=== PATIENT | male | born 1965 | race Hispanic/Latino ===

== ENCOUNTER 2018-10-02 12:02 | Emergency (ER) | payer MEDICAID ==
[2018-10-02 12:17] VITALS: BMI 22.0
[2018-10-02 12:22] VITALS: RESP 18; O2SAT 96
--- NOTE | 2018-10-02 12:28 | ED PDOC ---
Arrival/HPI - General Time Seen by Provider: 10/02/18 12:07 Historian: Patient, EMS - History of Present Illness Narrative History of Present Illness (Text): 10/02/18 12:22 Patient is a 53 y/o M, with no significant past medical history, presents to the ED via EMS for medical evaluation s/p alcohol intoxication today. As per EMS, patient was at a fast food restaurant when he became agitated and was subsequently brought to the ED for evaluation. Patient admits to drinking alcohol today and was able to ambulate to the stretcher without any difficulty. Patient denies any medical complaints. ROS limited secondary to patient's clinical presentation of alcohol intoxication. Time/Duration: Prior to Arrival Symptom Onset: Gradual Symptom Course: Unchanged Activities at Onset: Light Context: Other (Fast Food restaurant) Past Medical History - Provider Review Nursing Documentation Reviewed: Yes Family/Social History - Physician Review Nursing Documentation Reviewed: Yes Family/Social History: No Known Family HX Allergies/Home Meds Allergies/Adverse Reactions: Allergies Unobtainable Allergy (Verified 10/02/18 12:12) Review of Systems - Review of Systems Systems not reviewed;Unavailable: Intoxicated Respiratory: absent: SOB Cardiovascular: absent: Chest Pain Physical Exam Vital Signs Reviewed: Yes Vital Signs Temp Pulse Resp BP Pulse Ox 10/02/18 12:22 98.0 F 88 18 142/68 96 Temperature: Afebrile Blood Pressure: Normal Pulse: Regular Respiratory Rate: Normal Appearance: Positive for: Comfortable, Other (Alcohol smell on breath) Pain Distress: None Mental Status: Positive for: Alert and Oriented X 3 Finger Stick Blood Glucose: 112 - Systems Exam Head: Present: Atraumatic, Normocephalic Pupils: Present: PERRL Extroacular Muscles: Present: EOMI Conjunctiva: Present: Normal Respiratory/Chest: Present: Clear to Auscultation, Good Air Exchange. No: Respiratory Distress, Accessory Muscle Use Cardiovascular: Present: Regular Rate and Rhythm, Normal S1, S2. No: Murmurs Abdomen: No: Tenderness, Distention, Peritoneal Signs Back: Present: Normal Inspection Upper Extremity: Present: Normal Inspection. No: Cyanosis, Edema Lower Extremity: Present: Normal Inspection. No: Edema Neurological: Present: GCS=15, CN II-XII Intact, Speech Normal (alcohol smell on breath) Skin: Present: Warm, Dry, Normal Color. No: Rashes Psychiatric: Present: Alert, Intoxicated Medical Decision Making ED Course and Treatment: 10/02/18 12:28 Impression: 53 year old male presents to the ED for medical evaluation s/p alcohol intoxication. Differential Diagnosis included but are not limited to: Alcohol intoxication Plan: -- Monitor until sobriety -- Reassess and disposition Prior Visits: Notes and results from previous visits were reviewed. Progress Notes: 10/02/18 12:28 On exam, patient appears clinically intoxicated with alcohol smell on breath. Patient admits to drinking alcohol today. Patient was able to ambulate without any difficulty to the stretcher. Patient is resting comfortably in bed in no acute distress. Finger stick at bedside shows 112 BS. Patient will be monitored until sobriety. 10/02/18 21:04 Patient has been monitored for 9 hours. He is [facility]. He is ambulating around the Emergency department without issue. He was made aware of detox program at [facility] He was given list of shelters. - Scribe Statement The provider has reviewed the documentation as recorded by the Scribe Victor Manuel Aguilar. All medical record entries made by the Scribe were at my direction and personally dictated by me. I have reviewed the chart and agree that the record accurately reflects my personal performance of the history, physical exam, medical decision making, and the department course for this patient. I have also personally directed, reviewed, and agree with the discharge instructions and disposition. Disposition/Present on Arrival - Present on Arrival Any Indicators Present on Arrival: No - Disposition Have Diagnosis and Disposition been Completed?: Yes Diagnosis: Alcohol abuse Disposition: HOME/ ROUTINE Disposition Time: 21:06 Patient Plan: Discharge Condition: GOOD Discharge Instructions (ExitCare): Alcohol Abuse and Alcoholism (DC) Additional Instructions: Follow-up with PMD within 2 days. Return to Emergency department if condition worsens.
[2018-10-02 13:07] LABS: BASO # 0.04 K/mm3 (0.0-2.0); BASO % 0.5 % (0.0-3.0); EOS # 0.1 (0.0-0.7); EOS % 0.8 % (1.5-5.0); GRAN # 5.3 (1.4-6.5); GRAN % 68.3 % (50.0-68.0); HEMOGLOBIN 16.2 g/dL (14.0-18.0); LYMPH # 1.9 (1.2-3.4); LYMPH % 23.8 % (22.0-35.0); MEAN CORPUSCULAR HEMOGLOBIN 34.5 pg (25.0-35.0); MEAN CORPUSCULAR HGB CONC 35.6 g/dl (31.0-37.0); MEAN PLATELET VOLUME 8.7 fl (7.0-11.0); MONO # 0.5 (0.1-0.6); MONO % 6.6 % (1.0-6.0); RBC 4.69 10^6/uL (3.5-6.1); RED CELL DISTRIBUTION WIDTH 13.4 % (11.5-14.5); WHITE BLOOD COUNT 7.8 10^3/uL (4.5-11.0)
[2018-10-02 13:15] LABS: BLOOD UREA NITROGEN 9 mg/dL (7-21); CALCIUM 8.8 mg/dL (8.4-10.5); GFR NON-AFRICAN AMERICAN > 60
[2018-10-03 02:07] VITALS: BP 140/60; PULSE 82; TEMP 98.6
== END 2018-10-02 21:16 | disposition home or self-care (01) ==
LOC: ED 12:02
DX: F10.10 Alcohol abuse, uncomplicated (principal); Y90.8 Blood alcohol level of 240 mg/100 ml or more

== ENCOUNTER 2018-10-02 22:10 | Inpatient (IN) | payer MEDICAID ==
[2018-10-02 22:27] VITALS: BMI 19.9
--- NOTE | 2018-10-02 22:29 | ED PDOC ---
Arrival/HPI - General Historian: Patient - History of Present Illness Narrative History of Present Illness (Text): 10/02/18 22:26 53 y/o male, no significant pmh, nkda, biba for psychiatric evaluation. Pt. stated that he feels depress, want help, just seen in the ER and left the ER less than 12 hours ago, alcohol show intoxication, caught by the police and ambulance was call, no suicidal/homocidal ideation, no auditory or visual hallucination, no night sweat, no other medical or psychological complaints. Past Medical History - Provider Review Nursing Documentation Reviewed: Yes - Psychiatric Hx Substance Use: No - Anesthesia Hx Anesthesia: No Hx Anesthesia Reactions: No Hx Malignant Hyperthermia: No Family/Social History - Physician Review Nursing Documentation Reviewed: Yes Family/Social History: Unknown Family HX Smoking Status: Never Smoked Hx Alcohol Use: Yes Hx Substance Use: No Allergies/Home Meds Allergies/Adverse Reactions: Allergies No Known Allergies Allergy (Verified 10/03/18 04:08) Home Medications: Home Meds Medication Instructions Recorded Confirmed No Known Home Med 10/03/18 10/03/18 Review of Systems - Review of Systems Constitutional: absent: Fatigue, Fevers Eyes: absent: Vision Changes ENT: absent: Hearing Changes Respiratory: absent: SOB, Cough Cardiovascular: absent: Chest Pain Gastrointestinal: absent: Abdominal Pain, Diarrhea, Nausea, Vomiting Neurological: absent: Headache, Dizziness Psychiatric: Depression. absent: Anxiety, Suicidal Ideation Physical Exam - Systems Exam Head: Present: Atraumatic, Normocephalic Pupils: Present: PERRL Extroacular Muscles: Present: EOMI Conjunctiva: Present: Normal Mouth: Present: Moist Mucous Membranes Neck: Present: Normal Range of Motion Respiratory/Chest: Present: Clear to Auscultation, Good Air Exchange. No: Respiratory Distress, Accessory Muscle Use Cardiovascular: Present: Regular Rate and Rhythm, Normal S1, S2. No: Murmurs Abdomen: No: Tenderness, Distention, Peritoneal Signs Back: Present: Normal Inspection Upper Extremity: Present: Normal Inspection. No: Cyanosis, Edema Lower Extremity: Present: Normal Inspection. No: Edema Neurological: Present: GCS=15, CN II-XII Intact, Speech Normal Skin: Present: Warm, Dry, Normal Color. No: Rashes Psychiatric: Present: Alert, Oriented x 3, Normal Insight, Normal Concentration, Depressed Mood. No: Suicidal Ideation, Homicidal Ideation Medical Decision Making ED Course and Treatment: 10/02/18 22:28 -ua/uds -labs previously drawn -PES paged -Pt. is medically clear and stable now for psychiatric evaluation. 10/03/18 01:20 -UA show no UTI -UDS show +cocaine. -He is medically clear and stable at this time for psychiatric evaluation. -Pending PES evaluation 10/03/18 02:04 -Chest xray: ER wet read: no active disease -EKG: NSR @ 78 BPM, no St elevation or depression, no T wave inversion. -Pt. evaluated by the PES, recommend to admit the patient to psychiatric floor under Dr. Ely Ahmadi's service. Pt. agreed to be admitted. 10/03/18 02:46 -Pt. stated he feels anxious, request anxiolytic to sleep, no hand tremoring and no tongue fasciculation, ativan 1mg IM ordered. - RAD Interpretation Radiology Orders: Date of service: 10/03/2018 HISTORY: Admission COMPARISON: No prior. TECHNIQUE: Chest PA and lateral FINDINGS: LINES AND TUBES: None. LUNG AND PLEURA: The lungs are well inflated and clear. No pleural effusion or pneumothorax. HEART AND MEDIASTINUM: The heart is not enlarged. There is a round density in the middle mediastinum superior to the cardiac shadow identified only on lateral projection. No aortic atherosclerotic calcification present. The hilar contours are within normal limits. SKELETAL STRUCTURES: The bony structures are within normal limits for the patient's age. VISUALIZED UPPER ABDOMEN: Normal. OTHER FINDINGS: None. IMPRESSION: No active pulmonary disease Round density superior to the cardiac shadow in the middle mediastinum on lateral projection could be artifactual however repeat radiograph is recommended for definitive evaluation. Boiler Blower: Radiologist - PA / FURNACE FILLER / Resident Statement MD/DO has reviewed & agrees with the documentation as recorded. Disposition/Present on Arrival - Present on Arrival Any Indicators Present on Arrival: No History of DVT/PE: No History of Uncontrolled Diabetes: No Urinary Catheter: No History of Decub. Ulcer: No History Surgical Site Infection Following: None - Disposition Have Diagnosis and Disposition been Completed?: Yes Diagnosis: Major depression Disposition: HOSPITALIZED Disposition Time: 01:33 Patient Plan: Admission, Observation Patient Problems: Current Active Problems Problem Status Onset Major depression Acute Condition: STABLE
[2018-10-03 00:35] LABS: URINE BILIRUBIN NEGATIVE (NEGATIVE); URINE BLOOD TRACE-INTACT (NEGATIVE); URINE GLUCOSE (UA) NEGATIVE (NEGATIVE); URINE LEUKOCYTE ESTERASE NEGATIVE Leu/uL (NEGATIVE); URINE PROTEIN 100 mg/dL (<30 mg/dL); URINE UROBILINOGEN 0.2 E.U./dL (<1 E.U./dL)
[2018-10-03 00:38] LABS: URINE APPEARANCE CLEAR (CLEAR); URINE COLOR YELLOW (YELLOW)
[2018-10-03 01:06] LABS: URINE EPITHELIAL CELLS 0 - 2 /hpf (0-5); URINE RBC 0 - 2 /hpf (0-2); URINE WBC 0 - 2 /hpf (0-6)
[2018-10-03 01:07] LABS: URINE BACTERIA OCC /hpf
[2018-10-03 01:19] LABS: BARBITURATES, UR NEGATIVE (NEGATIVE); BENZODIAZEPINES, UR NEGATIVE (NEGATIVE); OPIATES, UR NEGATIVE (NEGATIVE); PHENCYCLIDINE, UR NEGATIVE (NEGATIVE)
[2018-10-03 03:18] VITALS: O2SAT 96
[2018-10-03] MEDS ORDERED: Magnesium Hydroxide Susp 30 ml UD PO PRN (04:13)
[2018-10-03] MEDS ORDERED: Alum-Mag Hydrox-Simethicone Susp (30 mL) PO PRN (04:13)
--- NOTE | 2018-10-03 04:23 | PCM.BM ---
<Cuco Corteznicki - Last Filed: 10/03/18 04:20> Treatment Plan Problems - Problems identified on initial assessmt suicidal ideation Date Initiated: 10/03/18 Time Initiated: 04:20 Assessment reference: NA Status: Active ineffective coping Date Initiated: 10/03/18 Time Initiated: 04:21 Assessment reference: NA Status: Active Hopelessness/Helplessness Date Initiated: 10/03/18 Time Initiated: 04:21 Assessment reference: NA Status: Active Treatment assets and liabiliti Patient Assests: cooperative, motivated Patient Liabilities: financial problems, poor support system, substance abuse - Milieu Protocol Maintain good personal hygiene: daily Encourage regular showers, daily Remind patient to perform daily oral care, daily Assist patient to perform ADL's Conduct patient checks and document Observation sheet: Q15 minutes Maintain personal safety: daily Educate patient to report safety concerns to staff, daily Monitor environment for contraband/sharps Medication safety: Monitor for expected outcome, potential side effects: daily, Assess barriers to learning: daily, Assess readiness for medication education: daily Family Contact Family involvement: Patient does not wish Family/SO involvement Discharge/Continuing Care - Education Needs Education Needs: Patient Medication, Patient Diagnosis/Disease Process, Patient Coping Skills, Patient Nutrition, Patient Personal Hygiene/Grooming - Discharge Discharge Criteria: Tolerates medication w/o severe side effects, Free of Suicidal thoughts, No longer exhibiting s/s of withdrawal Discharge to:: Home <Ely Juarez - Last Filed: 10/03/18 15:49> - Diagnosis (1) Major depression Status: Acute Interventions: 10/03/18 15:49 Psychoeducation Psychopharmacology/adjustment of medications as needed/ monitoring possible side effects Evaluate pt on daily basis Compliance with medications and follow up appointments Suicide and homicide risk assessment and prevention Relapse prevention Reduction of symptoms Improve functional status Family involvement As outpatient: cognitive behavioral therapy (2) Alcohol abuse Status: Acute Interventions: 10/03/18 15:49 Monitoring withdrawal symptoms Medical detoxification Pharmacotherapy for alcohol/benzos/opioid dependence Maintaining sobriety Relapse prevention Possible rehabilitation Motivational interviewing 12-step programs: AA meetings <Kylah Pelletier Y - Last Filed: 10/04/18 16:11> Family Contact Family involvement: Family/SO is involved - Goals for Treatment Patient goals for treatment: "I need to go to rehab."
[2018-10-03 07:02] LABS: GLUCOSE,FASTING 119 mg/dL (65-110); HDL CHOLESTEROL 68 mg/dL (29-60)
[2018-10-03 07:13] LABS: LDL CHOLESTEROL 144 mg/dL (0-129)
[2018-10-03] MEDS: Multivitamin With Minerals Tab PO SCH (16:08)
--- NOTE | 2018-10-03 16:08 | PCM.PSYCH ---
Initial Psychiatric Evaluation - Initial Psychiatric Evaluation Type of Admission: Voluntary Legal Status: Capacity (Patient has capacity to sign consent for treatment) Chief Complaint (in patient's own words): "I was going to to end of my life, I told them in the emergency room, but is still discharge me, I went outside, I told police that I am suicidal, they brought me back" Patient's Reaction to Hospitalization: Patient was admitted for evaluation and stabilization of depressive symptoms, possible suicidal ideation with a plan to overdose on alcohol. History of Present Illness and Precipitating Events: Shortly patient is a 53 y/o male, long history of alcohol use disorder, history of inpatient rehabs, not known previous psychiatric history patient was brought in by police for evaluation of possible suicidal ideations, patient was seen in the emergency room 12 hours prior, was intoxicated, blood alcohol level was more than 400, during the second visit patient was verbalizing thoughts of killing hi mself and was admitted for observation/stabilization/med management. Patient was seen and examined today at the treatment team meeting room with mental health worker, patient presented very poor personal hygiene, fair ADLs, difficult also alcoholic habitus, patient had difficulties to stay focused and concentrate, patient had upper extremity tremor, reported that he has withdrawal symptoms, patient was tearful, emotionally labile, but not aggressive or agitated. Patient reported that he was drinking daily about 24 beers a day, patient reported that he has history of blackouts, history of alcohol withdrawal seizures "years back", patient reported history of morning hangover, patient reported for past week she was feeling "depressed and suicidal". Patient reported that he had a plan to intoxicate himself to , patient reported he was feeling very down and depressed, hopeless, helpless, worthless and guilt, patient reported that in the emergency room he was not able to contract for safety. Patient reported that he feels very anxious but his anxiety is related to alcohol withdrawal symptoms. Patient denied being abused physically, emotionally and sexually. Patient reports being [facility] rehab, graduated from the program last summer, but relapsed right away. Patient was educated about naltrexone and Prinivil shot. Patient denied hearing voices, denied seeing things, denied paranoid ideations. Patient reports that he smokes about 1 pack a day, counseling provided, nicotine patch offered, patient was appreciated. Past psychiatric history: Patient denied treatment of mental illness, denied history of suicidal attempts. Medical history: Patient has history of hypertension. Social history: Patient has 1 daughter who is 14-15 years old, currently she is under care or her mother. Lab Results 10/03/18 06:15: TSH 3rd Generation 1.75 10/03/18 06:15: Fasting Glucose 119 H, Triglycerides 103, Cholesterol 233 H, LDL Cholesterol Direct 144 H, HDL Cholesterol 68 H 10/03/18 00:08: Urine Opiates Screen Negative, Urine Methadone Screen Negative, Ur Barbiturates Screen Negative, Ur Phencyclidine Scrn Negative, Ur Amphetamines Screen Negative, U Benzodiazepines Scrn Negative, U Oth Cocaine Metabols Positive H, U Cannabinoids Screen Negative 10/03/18 00:08: Urine Color Yellow, Urine Appearance Clear, Urine pH 6.0, Ur Specific [place] >= 1.030, Urine Protein 100 H, Urine Glucose (UA) Negative, Urine Ketones Negative, Urine Blood Trace-intact H, Urine Nitrate Negative, Urine Bilirubin Negative, Urine Urobilinogen 0.2, Ur Leukocyte Esterase Negative, Urine RBC 0 - 2, Urine WBC 0 - 2, Ur Epithelial Cells 0 - 2, Urine Bacteria Occ Vital Signs Temp Pulse Pulse Resp BP Pulse Ox 10/03/18 04:34 91 H 18 10/03/18 02:59 97.8 F 74 18 140/72 96 10/02/18 22:27 97.6 F 76 18 133/87 95 The patient failed the outpatient lower level of care: Yes Current Medications: Active Medications Generic Name Dose Route Start Last Admin Trade Name Freq PRN Reason Stop Dose Admin Acetaminophen 650 mg 10/03/18 04:13 Tylenol 325mg Tab PO Q6H PRN Pain, moderate (4-7) Al Hydrox/Mg Hydrox/Simethicone 30 ml 10/03/18 04:13 Maalox Plus 30 Ml PO DAILY PRN Upset Stomach Lorazepam 2 mg 10/03/18 04:15 10/03/18 05:39 Ativan PO Not Given Q6H STEFAN Protocol Magnesium Hydroxide 30 ml 10/03/18 04:13 Milk Of Magnesia PO DAILY PRN Constipation Present on Admission - Present on Admission Any Indicators Present on Admission: No Review of Systems - Review of Systems Systems not reviewed;Unavailable: Acuity of Condition - Constitutional Constitutional: As Per HPI - EENT Eyes: As Per HPI Ears: As Per HPI Nose/Mouth/Throat: As Per HPI - Cardiovascular Cardiovascular: As Per HPI - Respiratory Respiratory: As Per HPI - Gastrointestinal Gastrointestinal: As Per HPI - Genitourinary Genitourinary: As Per HPI - Reproductive: Male Reproductive:Male: As Per HPI - Musculoskeletal Musculoskeletal: As Per HPI - Integumentary Integumentary: As Per HPI - Neurological Neurological: As Per HPI - Psychiatric Psychiatric: As Per HPI - Endocrine Endocrine: As Per HPI - Hematologic/Lymphatic Hematologic: As Per HPI Past Patient History - Past Psychiatric History Previous Treatment History: None Prior Professional Help: As per HPI Prior Psychiatric Treatment: As per HPI At [facility] hospital: As per HPI Duration: As per HPI Explanation of prior treatment: As per HPI - PSYCHIATRIC Hx Depression: Yes Hx Substance Use: Yes - CARDIAC Hx Cardiac Disorders: No Hx Hypertension: No - PULMONARY Hx Tuberculosis: No - NEUROLOGICAL HX Cerebrovascular Accident: No Hx Seizures: No - HEMATOLOGICAL/ONCOLOGICAL Hx Cancer: No Hx Human Immunodeficiency Virus (HIV): No - GENITOURINARY/GYNECOLOGICAL Hx Sexually Transmitted Disorders: No - SURGICAL HISTORY Hx Surgeries: No - ANESTHESIA Hx Anesthesia: No Hx Anesthesia Reactions: No Hx Malignant Hyperthermia: No - Medical/Surgical History Reviewed & confirmed: by ct [employer] Allergies/Adverse Reactions: Allergies Allergy/AdvReac Type Severity Reaction Status Date / Time No Known Allergies Allergy Verified 10/03/18 04:08 Mental Status Examination - Personal Presentation Personal Presentation: Looks older than stated age - Affect Affect: Flat - Motor Activity Motor Activity: Calm - Reliability in Providing Information Reliability in Providing Information: Fair - Speech Speech: Organized - Mood Mood: Depressed, Anxious - Formal Thought Process Formal Thought Process: No Impairment - Obsessions/Compulsions Obsessions: None Compulsions: None - Cognitive Functions Orientation: Person, Place, Situation Sensorium: Alert Attention/Concentration: Easily distracted Abstract Thinking: [place] Estimate of Intelligence: Average Judgement: Intact, as evidence by: Insight regarding need for hospitalization - Risk Risk: Suicidal, Seizure, Withdrawal, Diminished functioning - Strength & Assets Inventory Strength & Assets Inventory: Cooperative, Other (Willingness to have treatment) - Limitations Limitations: Other (Alcohol mood disorder, poor social support) Psychiatric Physical Exam - Physical Exam Reviewed and confirmed: Emergency Department Physical Exam Results - Vital Signs Recent Vital Signs: Last Vital Signs Temp 97.8 F 10/03/18 02:59 Pulse 91 H 01/08/19 04:34 Resp 18 10/03/18 04:34 BP 140/72 10/03/18 02:59 Pulse Ox 96 10/03/18 02:59 - Labs Labs: Laboratory Results - last 24 hr 10/03/18 10/03/18 10/03/18 00:08 00:08 06:15 Fasting Glucose 119 H Triglycerides 103 Cholesterol 233 H LDL Cholesterol Direct 144 H HDL Cholesterol 68 H TSH 3rd Generation Urine Color Yellow Urine Appearance Clear Urine pH 6.0 Ur Specific [place] >= 1.030 Urine Protein 100 H Urine Glucose (UA) Negative Urine Ketones Negative Urine Blood Trace-intact H Urine Nitrate Negative Urine Bilirubin Negative Urine Urobilinogen 0.2 Ur Leukocyte Esterase Negative Urine RBC 0 - 2 Urine WBC 0 - 2 Ur Epithelial Cells 0 - 2 Urine Bacteria Occ Urine Opiates Screen Negative Urine Methadone Screen Negative Ur Barbiturates Screen Negative Ur Phencyclidine Scrn Negative Ur Amphetamines Screen Negative U Benzodiazepines Scrn Negative U Oth Cocaine Metabols Positive H U Cannabinoids Screen Negative 10/03/18 06:15 Fasting Glucose Triglycerides Cholesterol LDL Cholesterol Direct HDL Cholesterol TSH 3rd Generation 1.75 Urine Color Urine Appearance Urine pH Ur Specific [place] Urine Protein Urine Glucose (UA) Urine Ketones Urine Blood Urine Nitrate Urine Bilirubin Urine Urobilinogen Ur Leukocyte Esterase Urine RBC Urine WBC Ur Epithelial Cells Urine Bacteria Urine Opiates Screen Urine Methadone Screen Ur Barbiturates Screen Ur Phencyclidine Scrn Ur Amphetamines Screen U Benzodiazepines Scrn U Oth Cocaine Metabols U Cannabinoids Screen - EKG Data EKG Interpreted by: ER Physician DSM Plan - DSM 5 DSM 5 Diagnosis: Rule out major depressive disorder Rule out substance-induced mood disorder Alcohol use disorder Rule out alcohol withdrawal symptoms - Recommended/Plan of Treatment Treatment Recommendations and Plan of Treatment: Milieu/structure/supportive therapy Medical consult appreciated, see medical team note for more detailed info SW consultation for discharge plan and social issues Med management Multivitamins, thiamine, folic acid Monitoring withdrawal symptoms Librium 50 mg 4 times a day scheduled and 25 mg 4 times a day as needed Neurontin 300 mg 3 times a day scheduled for mood stabilization and meetings for alcohol off Labile Trazodone 50 mg for depression as well as insomnia Family involvement Follow up on labs Will monitor closely Pt was educated about risk/benefits and alternatives of medications, coping strategies (safety plan, suicide prevention), relapse prevention, importance of follow up with psychiatrist and therapist, stay away from drugs/alcohol/smoking Projected ELOS: 7 days Prognosis: Guarded Discharge Plan and Discharge Criteria: Pt will be not depressed or manic, will be more hopeful, will be not psychotic or anxious, will be not having thoughts of harming self or others, will be tolerating medications well, will not have major side effects, will be able to function, will not pose threat to self or others. - Tobacco Cessation Tobacco Use Status for the last 30 days: Heavy User(>=5 cigs &/or cigars/pipes daily) Tobacco Use Treatment Practical Counseling Provided: Yes Tobacco Use Treatment FDA-Approved Cessation Medication Provided: Yes Type of Medication Provided: Nicoderm CQ - Alcohol or Substance Abuse Does the patient have an Alcohol or Substance Abuse Disorder: Yes Initial Psych Certification - Initial Certification I certify that the inpatient psychiatric facility admission was medically necessary for either: Treatment which could reasonbly be expected to improve pt's condition, Diagnostic study I estimate of hospitalization is necessary for proper treatment of the patient: 7 Unit of Time: Days My plans for post-hospital care for this patient are: Inpatient rehab/dual diagnosis program
--- NOTE | 2018-10-03 16:11 | RAD ---
Date of service: 10/03/2018 HISTORY: Admission COMPARISON: No prior. TECHNIQUE: Chest PA and lateral FINDINGS: LINES AND TUBES: None. LUNG AND PLEURA: The lungs are well inflated and clear. No pleural effusion or pneumothorax. HEART AND MEDIASTINUM: The heart is not enlarged. There is a round density in the middle mediastinum superior to the cardiac shadow identified only on lateral projection. No aortic atherosclerotic calcification present. The hilar contours are within normal limits. SKELETAL STRUCTURES: The bony structures are within normal limits for the patient's age. VISUALIZED UPPER ABDOMEN: Normal. OTHER FINDINGS: None. IMPRESSION: No active pulmonary disease Round density superior to the cardiac shadow in the middle mediastinum on lateral projection could be artifactual however repeat radiograph is recommended for definitive evaluation.
--- NOTE | 2018-10-03 20:47 | CARD ---
APPROVED REPORT Date of service: 10/03/2018 EKG Measurement Heart [id number] <Conclusion> Normal sinus rhythm Normal ECG
[2018-10-04] MEDS: Multivitamin With Minerals Tab PO SCH (09:16)
--- NOTE | 2018-10-04 14:55 | PCM.PYCHPN ---
Psychiatric Progress Note - Psychiatric Progress Note Patient seen today, length of contact: 30 minutes Patient Chief Complaint: "I am very depressed, I do not know, I am easily crying, I feel very depressed" Problems Identified/Issues Discussed: Suicide/ homicide prevention, past psychiatric h/o, current psychiatric symptoms, medical problems, risk/benefits and alternatives of medications, medications compliance, coping strategies, substance abuse h/o, relapse preventi on, importance of follow up with psychiatrist and therapist, discharge plan. Medical Problems: Lower extremity pain, alcohol withdrawal symptoms under control Diagnostic Results: Lab Results 10/03/18 06:15: RPR Nonreactive 10/03/18 06:15: TSH 3rd Generation 1.75 10/03/18 06:15: Fasting Glucose 119 H, Triglycerides 103, Cholesterol 233 H, LDL Cholesterol Direct 144 H, HDL Cholesterol 68 H 10/03/18 00:08: Urine Opiates Screen Negative, Urine Methadone Screen Negative, Ur Barbiturates Screen Negative, Ur Phencyclidine Scrn Negative, Ur Amphetamines Screen Negative, U Benzodiazepines Scrn Negative, U Oth Cocaine Metabols Positive H, U Cannabinoids Screen Negative 10/03/18 00:08: Urine Color Yellow, Urine Appearance Clear, Urine pH 6.0, Ur Specific [place] >= 1.030, Urine Protein 100 H, Urine Glucose (UA) Negative, Urine Ketones Negative, Urine Blood Trace-intact H, Urine Nitrate Negative, Urine Bilirubin Negative, Urine Urobilinogen 0.2, Ur Leukocyte Esterase Negative, Urine RBC 0 - 2, Urine WBC 0 - 2, Ur Epithelial Cells 0 - 2, Urine Bacteria Occ Vital Signs Temp Pulse Pulse Resp BP Pulse Ox 10/04/18 07:12 98.1 F 75 20 113/84 10/03/18 16:00 94 H 122/91 H 10/03/18 04:34 91 H 18 10/03/18 02:59 97.8 F 74 18 140/72 96 10/02/18 22:27 97.6 F 76 18 133/87 95 DSM 5 Symptoms Update: Shortly patient is a 53 y/o male, long history of alcohol use disorder, history of inpatient rehabs, not known previous psychiatric history patient was brought in by police for evaluation of possible suicidal ideations, patient was seen in the emergency room 12 hours prior, was intoxicated, blood alcohol level was more than 400, during the second visit patient was verbalizing thoughts of killing himself and was admitted for observation/stabilization/med management. Patient was seen and examined today at the treatment team meeting, patient presented to be disheveled, easily crying, simple questions makes patient to feel upset and tearful, patient reported that he does not feel good at the same time withdrawal symptoms are better, vital signs are within normal limits, upper extremity shakiness is better controlled. Patient reported that he feels very anxious, unable to stay still. 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 So far patient tolerates medications well, no side effects observed or reported, aims 0, no EPS. Patient still has a lot of somatic complaints. As per staff patient has good appetite, fair sleep. Impression: Rule out major depressive disorder Rule out substance-induced mood disorder Alcohol use disorder Alcohol withdrawal symptoms under control Medication Change: Yes (Neurontin increased) Medical Record Reviewed: Yes Consults ordered or reviewed: Medical consult was called Mental Status Examination - Cognitive Function Orientation: Person, Place, Situation Memory: Impaired Attention: Poor Concentration: Poor Fund of Knowledge: WNL - Mood Mood: Depressed, Anxious - Affect Affect: Flat - Formal Thought Process Formal Thought Process: No Impairment - Suicidal Ideation Suicidal Ideation: No - Homicidal Ideation Homicidal Ideation: No Goal/Treatment Plan - Goal/Treatment Plan Need for Continued Stay: Remain at risks for inpatient hospitalization, Severe depression anxiety, Discharge may exacerbated symptoms, Severe functional impairment Progress Toward Problem(s) and Goals/Treatment Plan: Milieu/structure/supportive therapy Medical consult appreciated, see medical team note for more detailed info SW consultation for discharge plan and social issues Med management Multivitamins, thiamine, folic acid Monitoring withdrawal symptoms Librium 50 mg 4 times a day scheduled and 25 mg 4 times a day as needed Neurontin 600 mg 3 times a day scheduled for mood stabilization and meetings for alcohol off Labile Trazodone 50 mg for depression as well as insomnia neurology consult for abnormal gate, r/o alcoholic neuropathy Family involvement Follow up on labs Will monitor closely Pt was educated about risk/benefits and alternatives of medications, coping strategies (safety plan, suicide prevention), relapse prevention, importance of follow up with psychiatrist and therapist, stay away from drugs/alcohol/smoking Estimated Date of D/C: 10/11/18
[2018-10-05] MEDS: Multivitamin With Minerals Tab PO SCH (08:38)
--- NOTE | 2018-10-05 14:17 | CP.PCM.CON ---
<Feliz Valdivia - Last Filed: 10/05/18 14:44> History of Present Illness - History of Present Illness History of Present Illness: Feliz Valdivia PGY1, Consult Note for Dr Matthew Pt is a 53yo male with a PMH of NSTEMI, CVA 9 years ago, cocaine and alcohol abuse, who presents to emergency department for depression, possible suicidal ideation and associated drug and alcohol use. Pt is currently admitted to the psychiatric unit of [facility]. Medicine was consulted to evaluate the pt medically. Pt descibes what sounds like a cardiac catheterization about 3-6 months ago. Pt is unsure if a cardiac stent was placed during the procedure in [place]. Pt is unsure of the name of the hospital, and never filled any medications at a pharmacy after the procedure. Pt states he has been feeling like his foot will not fully extend while walking. He denies pain, or loss of sensation. PMH: CVA 9 years ago, NSTEMI unsure if a stent was placed, cocaine and alcohol abuse PSH: cardiac cath FH: mother 80 living, unsure of medical history, father 79 esophageal cancer SH: tobacco 1ppd [id number], alcohol 30 years, illicit drugs cocaine use Home meds: denies Allergies: denies PMD: does not follow with a physician Past Patient History - Past Social History Smoking Status: Never Smoked - CARDIAC Hx Cardiac Disorders: No Hx Hypertension: No - PULMONARY Hx Tuberculosis: No - NEUROLOGICAL HX Cerebrovascular Accident: No Hx Seizures: No - HEMATOLOGICAL/ONCOLOGICAL Hx Cancer: No Hx Human Immunodeficiency Virus (HIV): No - GENITOURINARY/GYNECOLOGICAL Hx Sexually Transmitted Disorders: No - PSYCHIATRIC Hx Substance Use: No - SURGICAL HISTORY Hx Surgeries: No - ANESTHESIA Hx Anesthesia: No Hx Anesthesia Reactions: No Hx Malignant Hyperthermia: No Meds Allergies/Adverse Reactions: Allergies Allergy/AdvReac Type Severity Reaction Status Date / Time No Known Allergies Allergy Verified 10/03/18 04:08 - Medications Medications: Current Medications Acetaminophen (Tylenol 325mg Tab) 650 mg PO Q6H PRN PRN Reason: Pain, moderate (4-7) Last Admin: 10/03/18 18:53 Dose: 650 mg Al Hydrox/Mg Hydrox/Simethicone (Maalox Plus 30 Ml) 30 ml PO DAILY PRN PRN Reason: Upset Stomach Aspirin (Aspirin Chewable) 81 mg PO DAILY [facility] Last Admin: 10/05/18 13:19 Dose: 81 mg Atorvastatin Calcium (Lipitor) 80 mg PO DIN [facility] Chlordiazepoxide (Librium) 25 mg PO Q6 PRN; Protocol PRN Reason: alcohol withdrawals Last Admin: 10/05/18 11:49 Dose: 25 mg Chlordiazepoxide (Librium) 50 mg PO QID [facility]; Protocol Last Admin: 10/05/18 13:19 Dose: 50 mg Clopidogrel Bisulfate (Plavix) 75 mg PO DAILY [facility] Last Admin: 10/05/18 13:19 Dose: 75 mg Folic Acid (Folic Acid) 1 mg PO DAILY [facility] Last Admin: 10/05/18 08:35 Dose: 1 mg Gabapentin (Neurontin) 600 mg PO TID [facility]; Protocol Last Admin: 10/05/18 13:20 Dose: 600 mg Magnesium Hydroxide (Milk Of Magnesia) 30 ml PO DAILY PRN PRN Reason: Constipation Multivitamins/Minerals (Therapeutic-M Tab) 1 tab PO DAILY [facility] Last Admin: 10/05/18 08:38 Dose: 1 tab Nicotine (Nicoderm Cq) 1 patch TD DAILY [facility] Last Admin: 10/05/18 08:36 Dose: 1 patch Thiamine HCl (Vitamin B1 Tab) 100 mg PO DAILY [facility] Last Admin: 10/05/18 08:36 Dose: 100 mg Trazodone HCl (Desyrel) 50 mg PO HS [facility] Last Admin: 10/04/18 21:13 Dose: 50 mg Physical Exam - Head Exam Head Exam: ATRAUMATIC, NORMOCEPHALIC - Eye Exam Eye Exam: EOMI - ENT Exam ENT Exam: Mucous Membranes Moist - Neck Exam Neck exam: Positive for: Full Rom - Respiratory Exam Respiratory Exam: Clear to Auscultation Bilateral, NORMAL BREATHING PATTERN. absent: Accessory Muscle Use, Respiratory Distress - Cardiovascular Exam Cardiovascular Exam: RRR, +S1, +S2. absent: Diastolic murmur, Systolic Murmur - GI/Abdominal Exam GI & Abdominal Exam: Normal Bowel Sounds, Soft. absent: Tenderness - Extremities Exam Extremities exam: Positive for: full ROM, normal inspection, pedal pulses present. Negative for: calf tenderness, pedal edema, tenderness Additional comments: no sensory disturbances, no pain to palpation, to either foot - Neurological Exam Neurological exam: Alert, Oriented x3 - Psychiatric Exam Psychiatric exam: Normal Affect, Normal Mood - Skin Skin Exam: Dry, Intact, Warm Results - Vital Signs Recent Vital Signs: Last Vital Signs Temp 98.7 F 10/05/18 07:30 Pulse 63 10/05/18 07:30 Resp 18 10/05/18 07:30 BP 86/56 L 10/05/18 07:30 Pulse Ox 96 10/03/18 02:59 Assessment & Plan - Assessment and Plan (Free Text) Assessment: Pt is a 53yo male with a PMH of NSTEMI, CVA 9 years ago, cocaine and alcohol abuse, who presents to emergency department for depression, possible suicidal ideation and associated drug and alcohol use. Pt states he has been having a feeling like he cannot fully extend his right foot/calf when walking for the past 2 weeks. Plan: Psychiatric conditions, Cocaine and Alcohol Abuse - continue to follow with psychiatry for medication management Gait Disturbance - Physical Therapy to eval and treat - possible from CVA in the past NSTEMI - unsure if pt had a stent placed in the past - will start ASA 81mg and Plavix 75mg, will continue for 1 month Pt seen, examined, assessment and plan discussed with Dr Tiff Valdivia PGY1, Internal Medicine Resident - Date & Time Date: 10/05/18 Time: 08:00 <Celeste Matthew - Last Filed: 10/06/18 16:06> Meds - Medications Medications: Current Medications Acetaminophen (Tylenol 325mg Tab) 650 mg PO Q6H PRN PRN Reason: Pain, moderate (4-7) Last Admin: 10/03/18 18:53 Dose: 650 mg Al Hydrox/Mg Hydrox/Simethicone (Maalox Plus 30 Ml) 30 ml PO DAILY PRN PRN Reason: Upset Stomach Aspirin (Aspirin Chewable) 81 mg PO DAILY [facility] Last Admin: 10/06/18 08:15 Dose: 81 mg Atorvastatin Calcium (Lipitor) 80 mg PO DIN [facility] Last Admin: 10/05/18 17:48 Dose: 80 mg Chlordiazepoxide (Librium) 50 mg PO TID [facility]; Protocol Clopidogrel Bisulfate (Plavix) 75 mg PO DAILY [facility] Last Admin: 10/06/18 08:15 Dose: 75 mg Cyanocobalamin (Vitamin B12 1000 Mcg Tab) 1,000 mcg PO DAILY [facility] Last Admin: 10/06/18 08:15 Dose: 1,000 mcg Fluoxetine HCl (Prozac) 20 mg PO DAILY [facility] Last Admin: 10/06/18 08:16 Dose: 20 mg Folic Acid (Folic Acid) 1 mg PO DAILY [facility] Last Admin: 10/06/18 08:15 Dose: 1 mg Gabapentin (Neurontin) 600 mg PO TID [facility]; Protocol Last Admin: 10/06/18 12:10 Dose: 600 mg Magnesium Hydroxide (Milk Of Magnesia) 30 ml PO DAILY PRN PRN Reason: Constipation Multivitamins/Minerals (Therapeutic-M Tab) 1 tab PO DAILY [facility] Last Admin: 10/06/18 08:15 Dose: 1 tab Nicotine (Nicoderm Cq) 1 patch TD DAILY [facility] Last Admin: 10/06/18 08:15 Dose: 1 patch Thiamine HCl (Vitamin B1 Tab) 100 mg PO BID [facility] Last Admin: 10/06/18 08:16 Dose: 100 mg Trazodone HCl (Desyrel) 50 mg PO HS [facility] Last Admin: 10/05/18 21:05 Dose: 50 mg Results - Vital Signs Recent Vital Signs: Last Vital Signs Temp 97.5 F L 10/06/18 07:23 Pulse 71 10/06/18 07:23 Resp 20 10/06/18 07:23 BP 113/75 10/06/18 07:23 Pulse Ox 96 10/03/18 02:59 - Labs Labs: Laboratory Results - last 24 hr 10/05/18 10/05/18 11:50 11:50 Hemoglobin A1c 5.2 Vitamin B12 283 Folate > 20.0 Attending/Attestation - Attestation I have personally seen and examined this patient.: Yes I have fully participated in the care of the patient.: Yes I have reviewed all pertinent clinical information: Yes Notes (Text): 10/06/18 16:00 Attending note/medical consult note; Patient seen and examined with resident in psychiatric floor. Patient is alert and awake. Anxious looking. Crying during interview. History is unreliable. Patient does not follow up with her primary care doctor. Patient moves from state to state because of his job. Currently complaining of anxiety and asking for more Librium and Ativan. Tolerating diet well. Denies any fevers, chills. Denies any chest pain, shortness of breath. Complaining of generalized weakness. Patient is a 53 year old male with a PMH of ?NSTEMI, CVA 9 years ago, cocaine and alcohol abuse, who presents to emergency department for depression and suicidal ideation and associated drug and alcohol use. 1. History of coronary artery disease; as per patient while he was in [place] he was taken to [facility] immediately upon admission with chest pain. Does not remember whether stent is placed on not. Not able to give the name of the hospital. Did not remember taking aspirin and Plavix. EKG showed normal sinus rhythm. Started on aspirin and Plavix. 2. alcohol abuse; continue to monitor. Started on multivitamin, thiamine, folic acid. Librium and Ativan when necessary. 3. Hypercholesterolemia; started on Lipitor. 4. Generalized weakness; mostly secondary to alcohol and drug abuse. PT evaluation requested. Questionable history of CVA in the past. 5. Cocaine abuse; complete drug abuse cessation is strongly advised. 6.Homelessness; social services aide evaluation appreciated. Patient is strongly advised to follow-up with PMD of choice upon discharge. Prognosis is poor secondary to continuous drug abuse and alcohol abuse, social situation and noncompliance with follow-up.
--- NOTE | 2018-10-05 15:17 | PCM.PYCHPN ---
Psychiatric Progress Note - Psychiatric Progress Note Patient seen today, length of contact: 30 minutes Patient Chief Complaint: "I am very depressed, I do not know, I am easily crying, I feel very depressed, we need to give me more medications " Problems Identified/Issues Discussed: Suicide/ homicide prevention, past psychiatric h/o, current psychiatric symptoms, medical problems, risk/benefits and alternatives of medications, medications compliance, coping strategies, substance abuse h/o, relapse prevention, importance of follow up with psychiatrist and therapist, discharge plan. Medical Problems: Lower extremity pain, alcohol withdrawal symptoms under control Diagnostic Results: Lab Results 10/03/18 06:15: RPR Nonreactive 10/03/18 06:15: TSH 3rd Generation 1.75 10/03/18 06:15: Fasting Glucose 119 H, Triglycerides 103, Cholesterol 233 H, LDL Cholesterol Direct 144 H, HDL Cholesterol 68 H 10/03/18 00:08: Urine Opiates Screen Negative, Urine Methadone Screen Negative, Ur Barbiturates Screen Negative, Ur Phencyclidine Scrn Negative, Ur Amphetamines Screen Negative, U Benzodiazepines Scrn Negative, U Oth Cocaine Metabols Positive H, U Cannabinoids Screen Negative 10/03/18 00:08: Urine Color Yellow, Urine Appearance Clear, Urine pH 6.0, Ur Specific [place] >= 1.030, Urine Protein 100 H, Urine Glucose (UA) Negative, Urine Ketones Negative, Urine Blood Trace-intact H, Urine Nitrate Negative, Urine Bilirubin Negative, Urine Urobilinogen 0.2, Ur Leukocyte Esterase Negative, Urine RBC 0 - 2, Urine WBC 0 - 2, Ur Epithelial Cells 0 - 2, Urine Bacteria Occ Vital Signs Temp Pulse Pulse Resp BP Pulse Ox 10/04/18 07:12 98.1 F 75 20 113/84 10/03/18 16:00 94 H 122/91 H 10/03/18 04:34 91 H 18 10/03/18 02:59 97.8 F 74 18 140/72 96 10/02/18 22:27 97.6 F 76 18 133/87 95 Temp Pulse Resp BP Pulse Ox 98.7 F 63 18 86/56 L 96 10/05/18 07:30 10/05/18 07:30 10/05/18 07:30 10/05/18 07:30 10/03/18 02:59 DSM 5 Symptoms Update: Shortly patient is a 53 y/o male, long history of alcohol use disorder, history of inpatient rehabs, not known previous psychiatric history patient was brought in by police for evaluation of possible suicidal ideations, patient was seen in the emergency room 12 hours prior, was intoxicated, blood alcohol level was more than 400, during the second visit patient was verbalizing thoughts of killing himself and was admitted for observation/stabilization/med management. Patient was seen and examined today at the dining area, patient is crying nonstop, has difficulties to stay focused and concentrate, has memory issues, patient told medical team that he had stent placement in his heart, but does not remember what hospital and when that was done. Neurology consult was called to rule out alcoholic neuropathy as well as Wernicke's Korsakoff syndrome. patient reported that he does not feel good at the same time withdrawal symptoms are better, vital signs are within normal limits, upper extremity shakiness better controlled. Patient reported that he feels very anxious, unable to stay still. Patient is on 125 mg of Librium for past 24 hours, we will start tapering down Librium, now patient will be only on scheduled dose of Librium 50 mg 4 times a day, as needed Librium was discontinued. Discussed with Dr. Jerome today consult appreciated. So far patient tolerates medications well, no side effects observed or reported, aims 0, no EPS. Patient still has a lot of somatic complaints. As per staff patient has good appetite, fair sleep. Impression: Rule out major depressive disorder Rule out substance-induced mood disorder Alcohol use disorder Alcohol withdrawal symptoms under control Medication Change: Yes (Librium taper down thiamine increased, Prozac started.) Medical Record Reviewed: Yes Mental Status Examination - Cognitive Function Orientation: Person, Place, Situation Memory: Impaired Attention: Poor Concentration: Poor Fund of Knowledge: WNL - Mood Mood: Depressed, Anxious - Affect Affect: Flat - Formal Thought Process Formal Thought Process: No Impairment - Suicidal Ideation Suicidal Ideation: No - Homicidal Ideation Homicidal Ideation: No Goal/Treatment Plan - Goal/Treatment Plan Need for Continued Stay: Remain at risks for inpatient hospitalization, Severe depression anxiety, Discharge may exacerbated symptoms, Severe functional impairment Progress Toward Problem(s) and Goals/Treatment Plan: Milieu/structure/supportive therapy Medical consult appreciated, see medical team note for more detailed info SW consultation for discharge plan and social issues Med management Multivitamins, thiamine, folic acid Monitoring withdrawal symptoms Librium 50 mg 4 times a day scheduled, as needed Librium discontinued Prozac 20 mg daily for depression and anxiety Neurontin 600 mg 3 times a day scheduled for mood stabilization and meetings for alcohol off Labile Trazodone 50 mg for depression as well as insomnia neurology consult for abnormal gate, r/o alcoholic neuropathy Family involvement Follow up on labs Will monitor closely Pt was educated about risk/benefits and alternatives of medications, coping strategies (safety plan, suicide prevention), relapse prevention, importance of follow up with psychiatrist and therapist, stay away from drugs/alcohol/smoking Estimated Date of D/C: 10/11/18
--- NOTE | 2018-10-05 15:29 | CP.PCM.CON ---
<[place] - Last Filed: 10/05/18 15:32> History of Present Illness - History of Present Illness History of Present Illness: Neurology Consult note for [place] PGY2 Patient is a 53 male with history of CAD, CVA (9-10 years prior), alcohol and cocaine abuse presenting with alcohol intoxication with suicidal ideation. While admitted patient also endorsed complaints of difficulty raising his right foot when walking. Patient denies fevers, chills, dizziness, numbness, tingling, pain. PMH: CVA 9 years ago, NSTEMI unsure if a stent was placed, cocaine and alcohol abuse PSH: cardiac cath FH: mother 80 living, unsure of medical history, father 79 esophageal cancer SH: tobacco 1ppd [id number], alcohol 30 years, illicit drugs cocaine use Home meds: denies Allergies: denies PMD: does not follow with a physician Review of Systems - Review of Systems All systems: reviewed and no additional remarkable complaints except (what has been stated in HPI) Past Patient History - Past Social History Smoking Status: Never Smoked - CARDIAC Hx Cardiac Disorders: No Hx Hypertension: No - PULMONARY Hx Tuberculosis: No - NEUROLOGICAL HX Cerebrovascular Accident: No Hx Seizures: No - HEMATOLOGICAL/ONCOLOGICAL Hx Cancer: No Hx Human Immunodeficiency Virus (HIV): No - GENITOURINARY/GYNECOLOGICAL Hx Sexually Transmitted Disorders: No - PSYCHIATRIC Hx Substance Use: No - SURGICAL HISTORY Hx Surgeries: No - ANESTHESIA Hx Anesthesia: No Hx Anesthesia Reactions: No Hx Malignant Hyperthermia: No Meds Allergies/Adverse Reactions: Allergies Allergy/AdvReac Type Severity Reaction Status Date / Time No Known Allergies Allergy Verified 10/03/18 04:08 - Medications Medications: Current Medications Acetaminophen (Tylenol 325mg Tab) 650 mg PO Q6H PRN PRN Reason: Pain, moderate (4-7) Last Admin: 10/03/18 18:53 Dose: 650 mg Al Hydrox/Mg Hydrox/Simethicone (Maalox Plus 30 Ml) 30 ml PO DAILY PRN PRN Reason: Upset Stomach Aspirin (Aspirin Chewable) 81 mg PO DAILY [facility] Last Admin: 10/05/18 13:19 Dose: 81 mg Atorvastatin Calcium (Lipitor) 80 mg PO DIN [place] Chlordiazepoxide (Librium) 50 mg PO QID [facility]; Protocol Last Admin: 10/05/18 13:19 Dose: 50 mg Clopidogrel Bisulfate (Plavix) 75 mg PO DAILY [facility] Last Admin: 10/05/18 13:19 Dose: 75 mg Fluoxetine HCl (Prozac) 20 mg PO DAILY [facility] Folic Acid (Folic Acid) 1 mg PO DAILY [facility] Last Admin: 10/05/18 08:35 Dose: 1 mg Gabapentin (Neurontin) 600 mg PO TID [facility]; Protocol Last Admin: 10/05/18 13:20 Dose: 600 mg Magnesium Hydroxide (Milk Of Magnesia) 30 ml PO DAILY PRN PRN Reason: Constipation Multivitamins/Minerals (Therapeutic-M Tab) 1 tab PO DAILY [facility] Last Admin: 10/05/18 08:38 Dose: 1 tab Nicotine (Nicoderm Cq) 1 patch TD DAILY [facility] Last Admin: 10/05/18 08:36 Dose: 1 patch Thiamine HCl (Vitamin B1 Tab) 100 mg PO BID [facility] Trazodone HCl (Desyrel) 50 mg PO HS [facility] Last Admin: 10/04/18 21:13 Dose: 50 mg Physical Exam - Head Exam Head Exam: ATRAUMATIC, NORMAL INSPECTION, NORMOCEPHALIC - Eye Exam Eye Exam: EOMI, Normal appearance - ENT Exam ENT Exam: Mucous Membranes Moist - Respiratory Exam Respiratory Exam: Clear to Auscultation Bilateral, NORMAL BREATHING PATTERN - Cardiovascular Exam Cardiovascular Exam: REGULAR RHYTHM, +S1, +S2 - GI/Abdominal Exam GI & Abdominal Exam: Normal Bowel Sounds, Soft - Extremities Exam Extremities exam: Positive for: normal inspection - Back Exam Back exam: NORMAL INSPECTION - Neurological Exam Neurological exam: Alert, Oriented x3 Additional comments: right foot drop - Psychiatric Exam Psychiatric exam: Anxious, Depressed - Skin Skin Exam: Dry, Normal Color Results - Vital Signs Recent Vital Signs: Last Vital Signs Temp 98.7 F 10/05/18 07:30 Pulse 63 10/05/18 07:30 Resp 18 10/05/18 07:30 BP 86/56 L 10/05/18 07:30 Pulse Ox 96 10/03/18 02:59 Assessment & Plan - Assessment and Plan (Free Text) Assessment: Patient is a 53 male with history of CAD, CVA (9-10 years prior), alcohol and cocaine abuse presenting with alcohol intoxication with suicidal ideation with complaints of difficulty with lifting his right foot found to have foot drop -Foot drop most likely due to way patient fell asleep -Recommend patient sleeping with a pillow under knees; will take a couple months to heal. Patient should also be evaluated by physical therapy to recommend a brace for his right foot -Vitamin B12 -CT head to evaluate prior stroke patient states he had <David Hooper - Last Filed: 10/08/18 14:03> Meds - Medications Medications: Current Medications Acetaminophen (Tylenol 325mg Tab) 650 mg PO Q6H PRN PRN Reason: Pain, moderate (4-7) Last Admin: 10/07/18 19:20 Dose: 650 mg Al Hydrox/Mg Hydrox/Simethicone (Maalox Plus 30 Ml) 30 ml PO DAILY PRN PRN Reason: Upset Stomach Aspirin (Aspirin Chewable) 81 mg PO DAILY [facility] Last Admin: 10/08/18 09:17 Dose: 81 mg Atorvastatin Calcium (Lipitor) 40 mg PO DIN [facility] Last Admin: 10/07/18 18:14 Dose: 40 mg Chlordiazepoxide (Librium) 50 mg PO AMHS [facility]; Protocol Last Admin: 10/08/18 09:18 Dose: 50 mg Clopidogrel Bisulfate (Plavix) 75 mg PO DAILY [facility] Last Admin: 10/08/18 09:17 Dose: 75 mg Cyanocobalamin (Vitamin B12 1000 Mcg Tab) 1,000 mcg PO DAILY [facility] Last Admin: 10/08/18 09:17 Dose: 1,000 mcg Fluoxetine HCl (Prozac) 20 mg PO DAILY [facility] Last Admin: 10/08/18 09:18 Dose: 20 mg Folic Acid (Folic Acid) 1 mg PO DAILY [facility] Last Admin: 10/08/18 09:17 Dose: 1 mg Gabapentin (Neurontin) 600 mg PO TID [facility]; Protocol Last Admin: 10/08/18 13:52 Dose: 600 mg Hydroxyzine Pamoate (Vistaril) 50 mg PO Q8 PRN; Protocol PRN Reason: Anxiety Magnesium Hydroxide (Milk Of Magnesia) 30 ml PO DAILY PRN PRN Reason: Constipation Multivitamins/Minerals (Therapeutic-M Tab) 1 tab PO DAILY [facility] Last Admin: 10/08/18 09:17 Dose: 1 tab Nicotine (Nicoderm Cq) 1 patch TD DAILY [facility] Last Admin: 10/08/18 09:18 Dose: 1 patch Thiamine HCl (Vitamin B1 Tab) 100 mg PO BID [facility] Last Admin: 10/08/18 09:17 Dose: 100 mg Trazodone HCl (Desyrel) 50 mg PO HS [facility] Last Admin: 10/07/18 21:20 Dose: 50 mg Results - Vital Signs Recent Vital Signs: Last Vital Signs Temp 97.5 F L 10/08/18 07:23 Pulse 76 10/08/18 07:23 Resp 18 10/08/18 07:23 BP 97/67 L 10/08/18 07:23 Pulse Ox 96 10/03/18 02:59 Attending/Attestation - Attestation I have personally seen and examined this patient.: Yes I have fully participated in the care of the patient.: Yes I have reviewed all pertinent clinical information: Yes Notes (Text): I agree with the assessment and plan: -Foot drop most likely due to way patient fell asleep -Recommend patient sleeping with a pillow under knees; will take a couple months to heal. Patient should also be evaluated by physical therapy to recommend a brace for his right foot
[2018-10-05 18:25] LABS: FOLATE > 20.0 ng/mL
[2018-10-06] MEDS: Multivitamin With Minerals Tab PO SCH (08:15)
--- NOTE | 2018-10-06 13:23 | PCM.PYCHPN ---
Psychiatric Progress Note - Psychiatric Progress Note Patient seen today, length of contact: 30 minutes Patient Chief Complaint: "I I am feeling little bit better, not that shaky" Problems Identified/Issues Discussed: Suicide/ homicide prevention, past psychiatric h/o, current psychiatric symptoms, medical problems, risk/benefits and alternatives of medications, medications compliance, coping strategies, substance abuse h/o, relapse prevention, importance of follow up with psychiatrist and therapist, discharge plan. Medical Problems: Lower extremity pain, alcohol withdrawal symptoms under control Diagnostic Results: Lab Results 10/03/18 06:15: RPR Nonreactive 10/03/18 06:15: TSH 3rd Generation 1.75 10/03/18 06:15: Fasting Glucose 119 H, Triglycerides 103, Cholesterol 233 H, LDL Cholesterol Direct 144 H, HDL Cholesterol 68 H 10/03/18 00:08: Urine Opiates Screen Negative, Urine Methadone Screen Negative, Ur Barbiturates Screen Negative, Ur Phencyclidine Scrn Negative, Ur Amphetamines Screen Negative, U Benzodiazepines Scrn Negative, U Oth Cocaine Metabols Positive H, U Cannabinoids Screen Negative 10/03/18 00:08: Urine Color Yellow, Urine Appearance Clear, Urine pH 6.0, Ur Specific [place] >= 1.030, Urine Protein 100 H, Urine Glucose (UA) Negative, Urine Ketones Negative, Urine Blood Trace-intact H, Urine Nitrate Negative, Urine Bilirubin Negative, Urine Urobilinogen 0.2, Ur Leukocyte Esterase Negative, Urine RBC 0 - 2, Urine WBC 0 - 2, Ur Epithelial Cells 0 - 2, Urine Bacteria Occ Vital Signs Temp Pulse Pulse Resp BP Pulse Ox 10/04/18 07:12 98.1 F 75 20 113/84 10/03/18 16:00 94 H 122/91 H 10/03/18 04:34 91 H 18 10/03/18 02:59 97.8 F 74 18 140/72 96 10/02/18 22:27 97.6 F 76 18 133/87 95 Temp Pulse Resp BP Pulse Ox 98.7 F 63 18 86/56 L 96 10/05/18 07:30 10/05/18 07:30 10/05/18 07:30 10/05/18 07:30 10/03/18 02:59 DSM 5 Symptoms Update: Shortly patient is a 53 y/o male, long history of alcohol use disorder, history of inpatient rehabs, not known previous psychiatric history patient was brought in by police for evaluation of possible suicidal ideations, patient was seen in the emergency room 12 hours prior, was intoxicated, blood alcohol level was more than 400, during the second visit patient was verbalizing thoughts of killing himself and was admitted for observation/stabilization/med management. Patient was seen and examined today in his room with mental health worker, it was the first day when patient was not crying, reported that she feels "little bit better, I am not that shaky", vital signs are stable, will start tapering down Librium. Patient still reported to feel depressed, hopeless, helpless, as per secondary social studies teacher collaterals, patient was not able to stay focused, was crying nonstop for about 1 hour yesterday. Patient was seen by neurology team, physical therapy team, medical team, recommendations appreciated. Neurology consult was called to rule out alcoholic neuropathy as well as Wernicke's Korsakoff syndrome, patient is on thiamine 100 mg twice a day, today patient was able to stay focused and concentrate, patient was oriented in place, self, date. discussed with Dr. Jerome 10/05/18. So far patient tolerates medications well, no side effects observed or reported, aims 0, no EPS. Patient still has a lot of somatic complaints. As per staff patient has good appetite, fair sleep. Impression: Rule out major depressive disorder Rule out substance-induced mood disorder Alcohol use disorder Alcohol withdrawal symptoms under control Medication Change: Yes (Librium decreased, Prozac started yesterday) Medical Record Reviewed: Yes Mental Status Examination - Cognitive Function Orientation: Person, Place, Situation Memory: Impaired Attention: Poor Concentration: Poor Fund of Knowledge: WNL - Mood Mood: Depressed, Anxious - Affect Affect: Flat - Formal Thought Process Formal Thought Process: No Impairment - Suicidal Ideation Suicidal Ideation: No - Homicidal Ideation Homicidal Ideation: No Goal/Treatment Plan - Goal/Treatment Plan Need for Continued Stay: Remain at risks for inpatient hospitalization, Severe depression anxiety, Discharge may exacerbated symptoms, Severe functional impairment Progress Toward Problem(s) and Goals/Treatment Plan: Milieu/structure/supportive therapy SW consultation for discharge plan and social issues Med management Multivitamins, thiamine, folic acid Monitoring withdrawal symptoms Librium 50 mg 3 times a day with a plan to taper that off Prozac 20 mg daily for depression and anxiety Neurontin 600 mg 3 times a day scheduled for mood stabilization and meetings for alcohol off Labile Trazodone 50 mg for depression as well as insomnia neurology consult appreciated Medical consult appreciated Physical therapy consultation appreciated Family involvement Follow up on labs Will monitor closely Pt was educated about risk/benefits and alternatives of medications, coping strategies (safety plan, suicide prevention), relapse prevention, importance of follow up with psychiatrist and therapist, stay away from drugs/alcohol/smoking Estimated Date of D/C: 10/11/18
[2018-10-07] MEDS: Multivitamin With Minerals Tab PO SCH (09:17)
--- NOTE | 2018-10-07 10:02 | PCM.PYCHPN ---
Psychiatric Progress Note - Psychiatric Progress Note Patient seen today, length of contact: 30 minutes Problems Identified/Issues Discussed: I reviewed assessment and recent notes. I met with patient at bedside. He appears unkempt and tired though oriented to month, year, location and superfic ially to circumstances. Patient reports feeling a little better since admission though still feels hopeless without much motivation. Energy levels remain low. Affect is constricted and mildly disoriented with inconsistent focus. Sometimes he repeats himself because he forgets parts of our conversation. Patient denies any withdrawal symptoms or new discomfort or pain though complains of needing physical therapy. Indicates having some right hip discomfort, unchanged from before. I agree with staff notes, patient has multiple somatic complaints which takes up most of our conversation. Patient de nies any issues with his medications and doesn't appear to be in any acute physical distress. There were no behavioral issues overnight. Diagnostic Results: Rule out major depressive disorder Rule out substance-induced mood disorder Alcohol use disorder Alcohol withdrawal symptoms under control Medication Change: Yes (Librium decreased, Prozac started yesterday) Medical Record Reviewed: Yes Mental Status Examination - Cognitive Function Orientation: Person, Place, Situation Memory: Impaired Attention: Poor Concentration: Poor Fund of Knowledge: WNL - Mood Mood: Depressed, Anxious - Affect Affect: Flat - Speech Speech: Appropriate - Formal Thought Process Formal Thought Process: No Impairment, Other (scattered at times) - Suicidal Ideation Suicidal Ideation: No - Homicidal Ideation Homicidal Ideation: No Goal/Treatment Plan - Goal/Treatment Plan Need for Continued Stay: Remain at risks for inpatient hospitalization, Severe depression anxiety, Discharge may exacerbated symptoms, Severe functional impairment Progress Toward Problem(s) and Goals/Treatment Plan: * c/w current tx and plan * Vitals reviewed and noted below: Selected Entries 10/06/18 10/06/18 07:23 16:00 Temperature 97.5 F L Pulse Rate 71 82 Respiratory 20 Rate Blood Pressure 113/75 107/76 * Taper librium 50 mg po TID as tolerated * No new weekend lab results thus far. Estimated Date of D/C: 10/11/18
[2018-10-08] MEDS: Multivitamin With Minerals Tab PO SCH (09:17)
--- NOTE | 2018-10-08 09:56 | PCM.PYCHPN ---
Psychiatric Progress Note - Psychiatric Progress Note Patient seen today, length of contact: 30 minutes Problems Identified/Issues Discussed: I reviewed assessment and recent notes. I met with patient at bedside. He appears unkempt and tired though oriented to month, year, location and superfic ially to circumstances. Patient reports feeling a little better since admission though still feels hopeless without much motivation. Energy levels remain low. Affect is constricted and mildly disoriented with inconsistent focus. Sometimes he repeats himself because he forgets parts of our conversation. Patient denies any withdrawal symptoms or new discomfort or pain though complains of needing physical therapy. Indicates having some right hip discomfort, unchanged from before. I agree with staff notes, patient has multiple somatic complaints which takes up most of our conversation. Patient de nies any issues with his medications and doesn't appear to be in any acute physical distress. There were no major behavioral issues and I agree with staff notes that indicate patient is medication seeking. Diagnostic Results: Rule out major depressive disorder Rule out substance-induced mood disorder Alcohol use disorder Alcohol withdrawal symptoms under control Medication Change: Yes (Librium decreased & Added vistaril 50 mg po q8 prn: anxiety on 10/08/18) Medical Record Reviewed: Yes Mental Status Examination - Cognitive Function Orientation: Person, Place, Situation Memory: Impaired Attention: Poor Concentration: Poor Fund of Knowledge: WNL - Mood Mood: Depressed, Anxious - Affect Affect: Flat - Speech Speech: Appropriate - Formal Thought Process Formal Thought Process: No Impairment, Other (scattered at times) - Suicidal Ideation Suicidal Ideation: No - Homicidal Ideation Homicidal Ideation: No Goal/Treatment Plan - Goal/Treatment Plan Need for Continued Stay: Remain at risks for inpatient hospitalization, Severe depression anxiety, Discharge may exacerbated symptoms, Severe functional impairment Progress Toward Problem(s) and Goals/Treatment Plan: * c/w current tx and plan * Added vistaril 50 mg po q8 prn: anxiety on 10/08/18 * Vitals reviewed and noted below: Selected Entries 10/06/18 10/06/18 10/07/18 07:23 16:00 07:00 Temperature 97.5 F L 97.8 F Pulse Rate 71 82 80 Respiratory 20 20 Rate Blood Pressure 113/75 107/76 124/64 * Decreased librium to 50 mg po AMHS on 10/08/18, continue taper as tolerated * No new weekend lab results thus far. Estimated Date of D/C: 10/11/18
[2018-10-09 07:19] VITALS: RESP 20
[2018-10-09] MEDS: Multivitamin With Minerals Tab PO SCH (09:14)
--- NOTE | 2018-10-09 15:41 | PCM.PYCHPN ---
Psychiatric Progress Note - Psychiatric Progress Note Patient seen today, length of contact: 30 minutes Patient Chief Complaint: "I I am feeling little bit better, not that shaky" Problems Identified/Issues Discussed: Suicide/ homicide prevention, past psychiatric h/o, current psychiatric symptoms, medical problems, risk/benefits and alternatives of medications, medications compliance, coping strategies, substance abuse h/o, relapse prevention, importance of follow up with psychiatrist and therapist, discharge plan. Medical Problems: Lower extremity pain, alcohol withdrawal symptoms under control Diagnostic Results: Lab Results 10/03/18 06:15: RPR Nonreactive 10/03/18 06:15: TSH 3rd Generation 1.75 10/03/18 06:15: Fasting Glucose 119 H, Triglycerides 103, Cholesterol 233 H, LDL Cholesterol Direct 144 H, HDL Cholesterol 68 H 10/03/18 00:08: Urine Opiates Screen Negative, Urine Methadone Screen Negative, Ur Barbiturates Screen Negative, Ur Phencyclidine Scrn Negative, Ur Amphetamines Screen Negative, U Benzodiazepines Scrn Negative, U Oth Cocaine Metabols Positive H, U Cannabinoids Screen Negative 10/03/18 00:08: Urine Color Yellow, Urine Appearance Clear, Urine pH 6.0, Ur Specific [place] >= 1.030, Urine Protein 100 H, Urine Glucose (UA) Negative, Urine Ketones Negative, Urine Blood Trace-intact H, Urine Nitrate Negative, Urine Bilirubin Negative, Urine Urobilinogen 0.2, Ur Leukocyte Esterase Negative, Urine RBC 0 - 2, Urine WBC 0 - 2, Ur Epithelial Cells 0 - 2, Urine Bacteria Occ Vital Signs Temp Pulse Pulse Resp BP Pulse Ox 10/04/18 07:12 98.1 F 75 20 113/84 10/03/18 16:00 94 H 122/91 H 10/03/18 04:34 91 H 18 10/03/18 02:59 97.8 F 74 18 140/72 96 10/02/18 22:27 97.6 F 76 18 133/87 95 Temp Pulse Resp BP Pulse Ox 98.7 F 63 18 86/56 L 96 10/05/18 07:30 10/05/18 07:30 10/05/18 07:30 10/05/18 07:30 10/03/18 02:59 DSM 5 Symptoms Update: Shortly patient is a 53 y/o male, long history of alcohol use disorder, history of inpatient rehabs, not known previous psychiatric history patient was brought in by police for evaluation of possible suicidal ideations, patient was seen in the emergency room 12 hours prior, was intoxicated, blood alcohol level was more than 400, during the second visit patient was verbalizing thoughts of killing himself and was admitted for observation/stabilization/med management. Patient was seen and examined today at the [facility] area pt is tearful, needy, depressed, c/o hip pain, was seen by PT and neurologist. will call medical team for follow up. pt still tearful, but not suicidal. Patient was seen by neurology team, physical therapy team, medical team, recommendations appreciated. Neurology consult was called to rule out alcoholic neuropathy as well as Wernicke's Korsakoff syndrome, patient is on thiamine 100 mg twice a day, today patient was able to stay focused and concentrate, patient was oriented in place, self, date. discussed with Dr. Jerome 10/05/18. So far patient tolerates medications well, no side effects observed or reported, aims 0, no EPS. Patient still has a lot of somatic complaints. As per staff patient has good appetite, fair sleep. Impression: Rule out major depressive disorder Rule out substance-induced mood disorder Alcohol use disorder Alcohol withdrawal symptoms under control Medication Change: Yes (librium decreased, prozac increased) Medical Record Reviewed: Yes Consults ordered or reviewed: Medical consult was called Mental Status Examination - Cognitive Function Orientation: Person, Place, Situation Memory: Impaired Attention: Poor Concentration: Poor Fund of Knowledge: WNL - Mood Mood: Depressed, Anxious - Affect Affect: Flat - Speech Speech: Appropriate - Formal Thought Process Formal Thought Process: No Impairment, Other (scattered at times) - Suicidal Ideation Suicidal Ideation: No - Homicidal Ideation Homicidal Ideation: No Goal/Treatment Plan - Goal/Treatment Plan Need for Continued Stay: Remain at risks for inpatient hospitalization, Severe depression anxiety, Discharge may exacerbated symptoms, Severe functional impairment Progress Toward Problem(s) and Goals/Treatment Plan: Milieu/structure/supportive therapy SW consultation for discharge plan and social issues Med management Multivitamins, thiamine, folic acid Monitoring withdrawal symptoms Librium 25mg po three times a day with a plan to taper that off Prozac 40 mg daily for depression and anxiety Neurontin 600 mg 3 times a day scheduled for mood stabilization and meetings for alcohol off [place] Trazodone 50 mg for depression as well as insomnia neurology consult appreciated Medical consult appreciated Physical therapy consultation appreciated Family involvement Follow up on labs Will monitor closely Pt was educated about risk/benefits and alternatives of medications, coping strategies (safety plan, suicide prevention), relapse prevention, importance of follow up with psychiatrist and therapist, stay away from drugs/alcohol/smoking Estimated Date of D/C: 10/11/18
[2018-10-10] MEDS: Multivitamin With Minerals Tab PO SCH (09:35)
--- NOTE | 2018-10-10 14:46 | RAD ---
PROCEDURE: Right Hip and pelvis radiographs. HISTORY: hip pain COMPARISON: None. FINDINGS: BONES: Normal. No fracture. JOINTS: Normal. SOFT TISSUES: Normal. OTHER FINDINGS: None. IMPRESSION: Negative study
--- NOTE | 2018-10-10 15:29 | CP.PCM.PN ---
<SkipFeliz - Last Filed: 10/10/18 15:35> Subjective - Date & Time of Evaluation Date of Evaluation: 10/10/18 Time of Evaluation: 07:00 - Subjective Subjective: Pt seen and examined. Pt reports pain in his right hip which he states is affecting how he walks. Objective - Vital Signs/Intake and Output Vital Signs (last 24 hours): Temp Pulse Resp BP Pulse Ox 97.9 F 56 L 20 98/64 L 96 10/10/18 07:00 10/10/18 07:00 10/10/18 07:00 10/10/18 07:00 10/03/18 02:59 - Medications Medications: Current Medications Al Hydrox/Mg Hydrox/Simethicone (Maalox Plus 30 Ml) 30 ml PO DAILY PRN PRN Reason: Upset Stomach Aspirin (Aspirin Chewable) 81 mg PO DAILY [facility] Last Admin: 10/10/18 09:34 Dose: 81 mg Atorvastatin Calcium (Lipitor) 40 mg PO DIN [facility] Last Admin: 10/09/18 18:04 Dose: 40 mg Chlordiazepoxide (Librium) 25 mg PO BID [facility]; Protocol Clopidogrel Bisulfate (Plavix) 75 mg PO DAILY [facility] Last Admin: 10/10/18 09:35 Dose: 75 mg Cyanocobalamin (Vitamin B12 1000 Mcg Tab) 1,000 mcg PO DAILY [facility] Last Admin: 10/10/18 09:33 Dose: 1,000 mcg Fluoxetine HCl (Prozac) 40 mg PO DAILY [facility] Last Admin: 10/10/18 09:34 Dose: 40 mg Folic Acid (Folic Acid) 1 mg PO DAILY [facility] Last Admin: 10/10/18 09:35 Dose: 1 mg Gabapentin (Neurontin) 600 mg PO TID [facility]; Protocol Last Admin: 10/10/18 13:08 Dose: 600 mg Hydroxyzine Pamoate (Vistaril) 50 mg PO Q8 PRN; Protocol PRN Reason: Anxiety Ibuprofen (Motrin Tab) 600 mg PO Q6H PRN PRN Reason: pain/fever Last Admin: 10/10/18 10:58 Dose: 600 mg Magnesium Hydroxide (Milk Of Magnesia) 30 ml PO DAILY PRN PRN Reason: Constipation Multivitamins/Minerals (Therapeutic-M Tab) 1 tab PO DAILY [facility] Last Admin: 10/10/18 09:35 Dose: 1 tab Naltrexone HCl (Revia) 50 mg PO DAILY [facility] Last Admin: 10/10/18 10:58 Dose: 50 mg Nicotine (Nicoderm Cq) 1 patch TD DAILY [facility] Last Admin: 10/10/18 09:35 Dose: 1 patch Thiamine HCl (Vitamin B1 Tab) 100 mg PO BID [facility] Last Admin: 10/10/18 09:35 Dose: 100 mg Trazodone HCl (Desyrel) 50 mg PO HS [facility] Last Admin: 10/09/18 21:08 Dose: 50 mg - Constitutional Appears: No Acute Distress - Head Exam Head Exam: ATRAUMATIC, NORMOCEPHALIC - Eye Exam Eye Exam: EOMI - ENT Exam ENT Exam: Mucous Membranes Moist - Neck Exam Neck Exam: Full ROM - Respiratory Exam Respiratory Exam: Clear to Ausculation Bilateral, NORMAL BREATHING PATTERN. absent: Accessory Muscle Use, Wheezes, Respiratory Distress - Cardiovascular Exam Cardiovascular Exam: RRR, +S1, +S2. absent: Diastolic murmur, Murmur - GI/Abdominal Exam GI & Abdominal Exam: Soft, Normal Bowel Sounds - Extremities Exam Extremities Exam: Full ROM. absent: Pedal Edema - Neurological Exam Neurological Exam: Alert, Awake, Oriented x3 - Psychiatric Exam Psychiatric exam: Normal Affect, Normal Mood - Skin Skin Exam: Dry, Intact, Warm Assessment and Plan - Assessment and Plan (Free Text) Assessment: Pt is a 53yo male with a PMH of NSTEMI, CVA 9 years ago, cocaine and alcohol abuse, who presents to emergency department for depression, possible suicidal ideation and associated drug and alcohol use. Pt states he has been having a feeling like he cannot fully extend his right foot/calf when walking for the past 2 weeks. He is also reporting pain in his right hip. Plan: Gait Disturbance - possibly from CVA in the past - Right hip xray: NEGATIVE History of NSTEMI - unsure if pt had a stent placed in the past - will start ASA 81mg and Plavix 75mg, will continue for 1 month Psychiatric conditions, Cocaine and Alcohol Abuse - continue to follow with psychiatry for medication management Medicine to sign off at this time, as always thank you for allowing us to participate in the care of the patient Pt seen, examined, assessment and plan discussed with Dr Ania Valdivia PGY1, Internal Medicine Resident <Ania Blair R - Last Filed: 10/11/18 14:51> Objective - Vital Signs/Intake and Output Vital Signs (last 24 hours): Temp Pulse Resp BP Pulse Ox 96.4 F L 64 20 106/69 96 10/11/18 07:46 10/11/18 07:46 10/11/18 07:46 10/11/18 07:46 10/03/18 02:59 - Medications Medications: Current Medications Al Hydrox/Mg Hydrox/Simethicone (Maalox Plus 30 Ml) 30 ml PO DAILY PRN PRN Reason: Upset Stomach Aspirin (Aspirin Chewable) 81 mg PO DAILY [facility] Last Admin: 10/11/18 08:59 Dose: 81 mg Atorvastatin Calcium (Lipitor) 40 mg PO DIN [facility] Last Admin: 10/10/18 17:07 Dose: 40 mg Chlordiazepoxide (Librium) 25 mg PO BID [facility]; Protocol Last Admin: 10/11/18 08:58 Dose: 25 mg Clopidogrel Bisulfate (Plavix) 75 mg PO DAILY [facility] Last Admin: 10/11/18 08:59 Dose: 75 mg Cyanocobalamin (Vitamin B12 1000 Mcg Tab) 1,000 mcg PO DAILY [facility] Last Admin: 10/11/18 08:59 Dose: 1,000 mcg Fluoxetine HCl (Prozac) 40 mg PO DAILY [facility] Last Admin: 10/11/18 08:59 Dose: 40 mg Folic Acid (Folic Acid) 1 mg PO DAILY [facility] Last Admin: 10/11/18 08:59 Dose: 1 mg Gabapentin (Neurontin) 600 mg PO TID [facility]; Protocol Last Admin: 10/11/18 13:08 Dose: 600 mg Hydroxyzine Pamoate (Vistaril) 50 mg PO Q8 PRN; Protocol PRN Reason: Anxiety Ibuprofen (Motrin Tab) 600 mg PO Q6H PRN PRN Reason: pain/fever Last Admin: 10/10/18 17:08 Dose: 600 mg Magnesium Hydroxide (Milk Of Magnesia) 30 ml PO DAILY PRN PRN Reason: Constipation Multivitamins/Minerals (Therapeutic-M Tab) 1 tab PO DAILY [facility] Last Admin: 10/11/18 08:59 Dose: 1 tab Naltrexone HCl (Revia) 50 mg PO DAILY [facility] Last Admin: 10/11/18 09:01 Dose: 50 mg Nicotine (Nicoderm Cq) 1 patch TD DAILY [facility] Last Admin: 10/11/18 08:58 Dose: 1 patch Thiamine HCl (Vitamin B1 Tab) 100 mg PO BID [facility] Last Admin: 10/11/18 08:58 Dose: 100 mg Trazodone HCl (Desyrel) 50 mg PO HS [facility] Last Admin: 10/10/18 21:43 Dose: 50 mg Attending/Attestation - Attestation I have personally seen and examined this patient.: Yes I have fully participated in the care of the patient.: Yes I have reviewed all pertinent clinical information, including history, physical exam and plan: Yes Notes (Text): Patient seen and examined by me with resident at 12:10PM on 10/10/18. Case including HPI, physical exam, and assessment and plan discussed with resident. Agree with above with following additions/corrections. Patient is a 53-year-old male with questionable coronary artery disease, CVA 9 years ago, cocaine abuse, and alcohol abuse that presented to the emergency room for depression, possible suicidal ideation, drug and alcohol use. Patient was admitted to the psychiatric unit. We are asked to see the patient today for right hip pain. Patient states he is feeling ok. Complains of right hip pain that is affecting his gait. Patient states it has been going on for over a month. Patient denies any trauma to the area. Patient does not use any assistive devices to ambulate. Patient denies shortness of breath. No chest pain or palpitations. No headaches or dizziness. No fevers or chills. No nausea, vomiting, or abdominal pain. No dysuria. No diarrhea or constipation. Physical exam: General: Awake and alert sitting up in bed in no acute distress HEENT: Normocephalic, atraumatic. Extraocular muscles intact, pupils equal and reactive, no scleral icterus. Oropharynx is pink and moist. No pharyngeal erythema or exudate appreciated. Neck is supple. Cardiovascular: Regular rhythm. Normal S1 and S2. No murmurs, rubs, or gallops appreciated Pulmonary: Normal respiratory effort. No rhonchi, rales, or wheezing appreciated. Gastrointestinal: Soft, nondistended. Nontender. Positive bowel sounds all 4 quadrants. No guarding. Musculoskeletal: Moves all extremities. No calf tenderness. No hip tenderness on palpation. No edema appreciated. Central nervous system: AAOx3, CN 2-12 grossly intact. 5/5 muscle strength all extremities. Dermatologic: Skin warm and dry. Assessment and plan: Patient is a 53-year-old male with questionable coronary artery disease, CVA 9 years ago, cocaine abuse, and alcohol abuse that presented to the emergency room for depression, possible suicidal ideation, drug and alcohol use. Patient was admitted to the psychiatric unit. We are asked to see the patient today for right hip pain. 1. Right hip pain. Right hip and pelvic xray per radiologist shows negative study. Patient advised to follow up with a primary care doctor if pain ang gait disturbance continues. Patient is ambulating without any assistive devices. Appears to ambulate well. Patient was seen by physical therapist and outpatient physical therapy is recommended. 2. ? history of CAD. Patient describes having a cardiac catheterization. Patient is unsure where this was done. Patient has not taken any medications for this and is unsure what was prescribed to him. He does not have any information about this procedure. Patient was started on a month of aspirin and Plavix by previous attending. Patient advised to follow-up with a primary care doctor and obtain records from where the procedure was done. Patient counseled at length on compliance with medications and follow-up. 3. Hypercholesterolemia. Continue Lipitor. 4. Cocaine and alcohol abuse. Patient counseled at length on cessation. Case was discussed in detail with the patient regarding current diagnosis and treatment plan. All questions answered. Patient has been advised to follow-up with a primary care doctor and also have outpatient physical therapy. Patient given prescription. This was discussed at length with the patient. Patient understands and agrees to the instructions. We will sign off. Please reconsult at any time if needed.
--- NOTE | 2018-10-10 15:31 | PCM.PYCHPN ---
Psychiatric Progress Note - Psychiatric Progress Note Patient seen today, length of contact: 30 minutes Patient Chief Complaint: "I I am feeling better, I really do appreciate your help Problems Identified/Issues Discussed: Suicide/ homicide prevention, past psychiatric h/o, current psychiatric symptoms, medical problems, risk/benefits and alternatives of medications, medications compliance, coping strategies, substance abuse h/o, relapse prevention, importance of follow up with psychiatrist and therapist, discharge plan. Medical Problems: Lower extremity pain, alcohol withdrawal symptoms under control Diagnostic Results: Lab Results 10/03/18 06:15: RPR Nonreactive 10/03/18 06:15: TSH 3rd Generation 1.75 10/03/18 06:15: Fasting Glucose 119 H, Triglycerides 103, Cholesterol 233 H, LDL Cholesterol Direct 144 H, HDL Cholesterol 68 H 10/03/18 00:08: Urine Opiates Screen Negative, Urine Methadone Screen Negative, Ur Barbiturates Screen Negative, Ur Phencyclidine Scrn Negative, Ur Amphetamines Screen Negative, U Benzodiazepines Scrn Negative, U Oth Cocaine Metabols Positive H, U Cannabinoids Screen Negative 10/03/18 00:08: Urine Color Yellow, Urine Appearance Clear, Urine pH 6.0, Ur Specific [place] >= 1.030, Urine Protein 100 H, Urine Glucose (UA) Negative, Urine Ketones Negative, Urine Blood Trace-intact H, Urine Nitrate Negative, Urin e Bilirubin Negative, Urine Urobilinogen 0.2, Ur Leukocyte Esterase Negative, Urine RBC 0 - 2, Urine WBC 0 - 2, Ur Epithelial Cells 0 - 2, Urine Bacteria Occ Vital Signs Temp Pulse Pulse Resp BP Pulse Ox 10/04/18 07:12 98.1 F 75 20 113/84 10/03/18 16:00 94 H 122/91 H 10/03/18 04:34 91 H 18 10/03/18 02:59 97.8 F 74 18 140/72 96 10/02/18 22:27 97.6 F 76 18 133/87 95 Temp Pulse Resp BP Pulse Ox 98.7 F 63 18 86/56 L 96 10/05/18 07:30 10/05/18 07:30 10/05/18 07:30 10/05/18 07:30 10/03/18 02:59 DSM 5 Symptoms Update: Shortly patient is a 53 y/o male, long history of alcohol use disorder, history of inpatient rehabs, not known previous psychiatric history patient was brought in by police for evaluation of possible suicidal ideations, patient was seen in the emergency room 12 hours prior, was intoxicated, blood alcohol level was more than 400, during the second visit patient was verbalizing thoughts of killing himself and was admitted for observation/stabilization/med management. Patient was seen and examined today next to the nursing station, patient present ed much better, less tearful, appreciate if, willing to start naltrexone for alcohol cravings, patient was seen by medical team, pelvic x-ray was taken which was negative patient reported that he walks better, pain is much better Patient adamantly denied thoughts of harming himself or others, anxiety and depression under control. Patient is not psychotic. Patient was seen by neurology team, physical therapy team, medical team, recommendations appreciated. Neurology consult was called to rule out alcoholic neuropathy as well as Wernicke's Korsakoff syndrome, recommendations are appreciated. So far patient tolerates medications well, no side effects observed or reported, aims 0, no EPS. Patient still has a lot of somatic complaints. As per staff patient has good appetite, fair sleep. Impression: Rule out major depressive disorder Rule out substance-induced mood disorder Alcohol use disorder Alcohol withdrawal symptoms under control Medication Change: Yes (librium decreased, naltrexone started) Medical Record Reviewed: Yes Consults ordered or reviewed: Medical consult and neurology consult appreciated Mental Status Examination - Cognitive Function Orientation: Person, Place, Situation Memory: Impaired Attention: Poor (Improvement) Concentration: Poor (Improvement) Fund of Knowledge: WNL - Mood Mood: Depressed ("I am feeling better"), Anxious ("I am less anxious") - Affect Affect: Constricted (But more reactive and mood congruent) - Speech Speech: Appropriate - Formal Thought Process Formal Thought Process: No Impairment, Other (scattered at times) - Suicidal Ideation Suicidal Ideation: No - Homicidal Ideation Homicidal Ideation: No Goal/Treatment Plan - Goal/Treatment Plan Need for Continued Stay: Remain at risks for inpatient hospitalization, Severe depression anxiety, Discharge may exacerbated symptoms, Severe functional impairment Progress Toward Problem(s) and Goals/Treatment Plan: Milieu/structure/supportive therapy SW consultation for discharge plan and social issues Med management Multivitamins, thiamine, folic acid Monitoring withdrawal symptoms Librium 25mg po two times a day with a plan to taper that off Prozac 40 mg daily for depression and anxiety Neurontin 600 mg 3 times a day scheduled for mood stabilization and meetings for alcohol off [place] Trazodone 50 mg for depression as well as insomnia Naltrexone 50 mg p.o. daily for alcohol cravings neurology consult appreciated Medical consult appreciated Physical therapy consultation appreciated Family involvement Follow up on labs Will monitor closely Pt was educated about risk/benefits and alternatives of medications, coping strategies (safety plan, suicide prevention), relapse prevention, importance of follow up with psychiatrist and therapist, stay away from drugs/alcohol/smoking Estimated Date of D/C: 10/11/18
[2018-10-11 07:47] VITALS: BP 106/69; PULSE 64; TEMP 96.4
[2018-10-11] MEDS: Multivitamin With Minerals Tab PO SCH (08:59)
--- NOTE | 2018-10-11 15:48 | PCM.PYCHDC ---
Mental Status Examination - Mental Status Examination Orientation: Person, Place, Situation, Time Memory: Intact (Improved) Mood: Neutral Affect: Constricted (But reactive and mood congruent) Speech: Appropriate Attention: Poor (Much improved) Concentration: Poor (Much improved) Association: WNL Fund of Knowledge: WNL Formal Thought Process: No Impairment Description of patient's judgement and insight: Pt has improved insight into mental and medical illness, but still jennings poor insight into his addiction to alcohol, pt was compliant with medications and unit rules and regulations, pt was going to groups, was calm, cooperative, socially appropriate, no behavioral incidents, no agitation, no aggression. Psychotic Thoughts and Behaviors: Pt denied v/a/t hallucinations, denied paranoid ideations, pt does not appear to be psychotic, and thought process is goal directed. Suicidal Ideation: No Current Homicidal Ideation?: No Plan: pt adamantly denied thoughts of harming self or others denied intent or plan. Discharge Summary - Discharge Note Reason for Hospitalization: Patient was admitted for evaluation and stabilization of depressive symptoms, possible suicidal ideation with a plan to overdose on alcohol. Psychiatric History (includes Medical, Family, Personal Hx): Denied Laboratory Data: See HPI Lab Results 10/05/18 11:50: Vitamin B12 283, Folate > 20.0 10/05/18 11:50: Hemoglobin A1c 5.2 10/03/18 06:15: RPR Nonreactive 10/03/18 06:15: TSH 3rd Generation 1.75 10/03/18 06:15: Fasting Glucose 119 H, Triglycerides 103, Cholesterol 233 H, LDL Cholesterol Direct 144 H, HDL Cholesterol 68 H 10/03/18 00:08: Urine Opiates Screen Negative, Urine Methadone Screen Negative, Ur Barbiturates Screen Negative, Ur Phencyclidine Scrn Negative, Ur Amphetamines Screen Negative, U Benzodiazepines Scrn Negative, U Oth Cocaine Metabols Positive H, U Cannabinoids Screen Negative 10/03/18 00:08: Urine Color Yellow, Urine Appearance Clear, Urine pH 6.0, Ur Specific Henley >= 1.030, Urine Protein 100 H, Urine Glucose (UA) Negative, Urine Ketones Negative, Urine Blood Trace-intact H, Urine Nitrate Negative, Urine Bilirubin Negative, Urine Urobilinogen 0.2, Ur Leukocyte Esterase Negative, Urine RBC 0 - 2, Urine WBC 0 - 2, Ur Epithelial Cells 0 - 2, Urine Alpa teria Occ Vital Signs Temp Pulse Pulse Resp BP Pulse Ox 10/11/18 07:46 96.4 F L 64 20 106/69 10/10/18 16:00 72 92/64 L 10/10/18 07:00 97.9 F 56 L 20 98/64 L 10/09/18 16:00 82 108/73 10/09/18 07:18 97.2 F L 59 L 20 110/81 10/08/18 07:23 97.5 F L 76 18 97/67 L 10/07/18 07:00 97.8 F 80 20 124/64 10/06/18 16:00 82 107/76 10/06/18 07:23 97.5 F L 71 20 113/75 10/05/18 16:00 79 119/74 10/05/18 07:30 98.7 F 63 18 86/56 L 10/04/18 16:00 90 115/85 10/04/18 07:12 98.1 F 75 20 113/84 10/03/18 16:00 94 H 122/91 H 10/03/18 04:34 91 H 18 10/03/18 02:59 97.8 F 74 18 140/72 96 10/02/18 22:27 97.6 F 76 18 133/87 95 Consultations:: List each consultation separately and include: 1. Reason for request. 2. Findings. 3. Follow-up Consultations: Medical consult and neurology consult appreciated Please see notes for more detailed information Summary of Hospital Course include:: 1. Description of specific treatment plan utilized for patients during their course of treatmen. 2. Summarize the time- course for resolution of acute symptoms and/or regressed behaviors. 3. Describe issues identified and worked on during hospitalization. 4. Describe medication utilized. 5. Describe medical problems identified and treated. 6. Reassessment of suicide risk Summary of Hospital Course: Shortly patient is a 53 y/o male, long history of alcohol use disorder, history of inpatient rehabs, not known previous psychiatric history patient was brought in by police for evaluation of possible suicidal ideations, patient was seen in the emergency room 12 hours prior, was intoxicated, blood alcohol level was more than 400, during the second visit patient was verbalizing thoughts of killing himself and was admitted for observation/stabilization/med management. The time of admission patient presented to be depressed, anxious, was unable to take care of himself, please see notes for detailed information Lab Results 10/03/18 06:15: TSH 3rd Generation 1.75 10/03/18 06:15: Fasting Glucose 119 H, Triglycerides 103, Cholesterol 233 H, LDL Cholesterol Direct 144 H, HDL Cholesterol 68 H 10/03/18 00:08: Urine Opiates Screen Negative, Urine Methadone Screen Negative, Ur Barbiturates Screen Negative, Ur Phencyclidine Scrn Negative, Ur Amphetamines Screen Negative, U Benzodiazepines Scrn Negative, U Oth Cocaine Metabols Positive H, U Cannabinoids Screen Negative 10/03/18 00:08: Urine Color Yellow, Urine Appearance Clear, Urine pH 6.0, Ur Specific Henley >= 1.030, Urine Protein 100 H, Urine Glucose (UA) Negative, Urine Ketones Negative, Urine Blood Trace-intact H, Urine Nitrate Negative, Urine Bilirubin Negative, Urine Urobilinogen 0.2, Ur Leukocyte Esterase Negative, Urine RBC 0 - 2, Urine WBC 0 - 2, Ur Epithelial Cells 0 - 2, Urine Bacteria Occ Vital Signs Temp Pulse Pulse Resp BP Pulse Ox 10/03/18 04:34 91 H 18 10/03/18 02:59 97.8 F 74 18 140/72 96 10/02/18 22:27 97.6 F 76 18 133/87 95 Over the course of this hospitalization patient was stabilized on the following medications: Prozac 40 mg daily for depression and anxiety Patient was successfully weaned off from the benzodiazepines for alcohol withdrawal symptoms Patient was taking multivitamin/thiamine/folic acid Review was started 50 mg p.o. daily for alcohol cravings Trazodone 50 mg at the nighttime for insomnia and depression Neurontin 300 mg 3 times a day for neuropathy Patient tolerated medications well, no side effects observed or reported, aims 0, no EPS. Patient was seen by physical therapy She was seen by medical team Patient was seen by neurology team Over the course of this hospitalization pt was attending groups, pt also had medication management, had therapeutic milieu. Overall pt improved significantly, pt's affect became brighter, pt was less depressed, has realistic future oriented plans, pt also does not appear to be psychotic, or anxious, pt was socially appropriate, no behavioral issues soon pt deemed to be ready for discharge. At the time of the discharge pt denied been depressed, denied thoughts of harming self or others, denied psychotic symptoms, and pt does not appeared to be psychotic, denied been anxious, pt is not in imminent danger to self or others, pt was referred to inpatient rehab, information about follow up appointment, time and address provided to the pt, it is patient responsibility to follow up with outpatient clinic, PMD as well as specialists (see note for more detailed information). In case pt will need to obtain results of studies pending at discharge pt was provided with contact information of Psychiatric Inpatient unit [phone] as well as Medical Record Department [phone]. Naltrexone treatment provided Counseling about smoking and alcohol cessation provided AA meetings as well as smoking cessation treatment program information was provided by the pt was provided with prescriptions for all of medications (please see medication reconciliation form) Pt was educated about safety plan in case of worsening of symptoms or in case of suicidal or homicidal ideation call 911 or go to the nearest ER, also was educated to take meds as prescribed and stay away from drugs, pt verbalized understanding. - Diagnosis (1) Major depression Current Visit: Yes Status: Acute Priority: High (2) Alcohol abuse Current Visit: No Status: Chronic Priority: High - Final Diagnosis (DSM 5) Condition upon Discharge: STABLE Disposition: HOME/ ROUTINE Follow-up Treatment Plan: At the time of the discharge pt denied been depressed, denied thoughts of harming self or others, denied psychotic symptoms, and pt does not appeared to be psychotic, denied been anxious, pt is not in imminent danger to self or others, pt was referred to inpatient rehab, information about follow up darian ointment, time and address provided to the pt, it is patient responsibility to follow up with outpatient clinic, PMD as well as specialists (see note for more detailed information). In case pt will need to obtain results of studies pending at discharge pt was provided with contact information of Psychiatric Inpatient unit [phone] as well as Medical Record Department [phone]. Naltrexone treatment provided Counseling about smoking and alcohol cessation provided AA meetings as well as smoking cessation treatment program information was provided by the pt was provided with prescriptions for all of medications (please see medication reconciliation form) Pt was educated about safety plan in case of worsening of symptoms or in case of suicidal or homicidal ideation call 911 or go to the nearest ER, also was educated to take meds as prescribed and stay away from drugs, pt verbalized understanding. Prescriptions/Medication Reconciliation: Aspirin [Aspirin Chewable] 81 mg PO DAILY #30 chew Atorvastatin [Lipitor] 40 mg PO DIN #30 tab Clopidogrel [Plavix] 75 mg PO DAILY #30 tab Cyanocobalamin [Vitamin B12 1000 mcg Tab] 1,000 mcg PO DAILY #30 tab Fluoxetine HCl [Prozac] 40 mg PO DAILY #30 cap Folic Acid 1 mg PO DAILY #30 tab Gabapentin [Neurontin] 600 mg PO TID #90 tab Ibuprofen [Motrin Tab] 600 mg PO Q6H PRN #90 tab PRN Reason: pain/fever Multimineral/Multivitamin [Therapeutic-M Tab] 1 tab PO DAILY #30 tab Naltrexone [Revia] 50 mg PO DAILY #30 tab Nicotine 21 mg/24 hr [Nicoderm Cq] 1 patch TD DAILY #30 patch Thiamine [Vitamin B1 Tab] 100 mg PO BID #60 tab traZODone [Desyrel] 50 mg PO HS #30 tab - Smoking Cessation Smoking Cessation Medication prescribed: Yes - Antipsychotic Medications Pt discharged on 2 or more routine antipsychotic medications: No
== END 2018-10-11 16:16 | disposition home or self-care (01) | DRG 426 ==
LOC: ED 22:10 → ERH 10-03 02:03 → PSYC 10-03 03:30
PROVIDERS: ADMIT Psychiatry & Neurology Psychiatry; ATTEND Psychiatry & Neurology Psychiatry
PROC: GZ3ZZZZ Medication Management (ICD-10-PCS; principal; 2018-10-03)
DX: F32.9 Major depressive disorder, single episode, unspecified (principal); F14.10 Cocaine abuse, uncomplicated; F10.239 Alcohol dependence with withdrawal, unspecified; F17.210 Nicotine dependence, cigarettes, uncomplicated; I10 Essential (primary) hypertension; I25.10 Atherosclerotic heart disease of native coronary artery without angina pectoris; E78.00 Pure hypercholesterolemia, unspecified; F41.9 Anxiety disorder, unspecified; M21.371 Foot drop, right foot; R45.851 Suicidal ideations; I25.2 Old myocardial infarction; Z86.73 Personal history of transient ischemic attack (TIA), and cerebral infarction without residual deficits; Z91.19 Patient's noncompliance with other medical treatment and regimen